=== PATIENT | male | born 1995 | race Caucasian/White ===

== ENCOUNTER 2024-12-08 02:18 | Emergency (ER) | payer SELFPAY ==
[2024-12-08 02:23] VITALS: BP 139/73
[2024-12-08 02:31] VITALS: BMI 26.5
[2024-12-08 03:00] VITALS: BP 125/72
--- NOTE | 2024-12-08 04:34 | ED.GENMED ---
History of Present Illness
General
Chief Complaint: Fall
Source: patient and ambulance crew
Exam Limitations: none
Time Seen by Provider: 12/08/24 04:08
Nursing documentation reviewed up to this point in time: agreed with
History of Present Illness
History of Present Illness:
Patient is a 29-year-old gentleman with history of hypertension admits to drinking alcohol tonight while out with friends. He somehow became from his friends and admits to feeling alone, anxious, became scared and thus called 911. He
states he was 'in survival mode' and apparently attempted to jump over a fence, fell with sustained some superficial abrasions to his dorsal hands. He denies head injury nor loss of consciousness. He arrives via EMS. Police were concerned that
patient may have fallen onto his face. He denies head nor facial injury.
Admits to drinking alcohol tonight but states he rarely drinks alcohol denies drug use.
His only daily medication is an ARB for hypertension.
Unsure as to his last Tdap but believes this was greater than 10 years ago.
Past History
Past History
ED Past Medical History: HTN
ED Past Surgical History: None
Social History
Tobacco: Non-smoker
Alcohol: Occasional
Drug: None
Personal: Single
Living: with family
Employment: Employed
Family History
Family History: Other (Noncontributory)
Phy Exam
Physical Exam
Physical Exam:
TRAUMA EXAM:
VITAL SIGNS: Vital signs reviewed, cooperative
DISTRESS: No active disease
EYES: Pupils reactive, no orbital trauma
NOSE: No deformity or epistaxis
FACE AND SCALP: No scalp or facial trauma, external canals no blood
NECK: Supple nontender
BACK: Back nontender, pelvis stable to compression
RESPIRATORY: No distress, breath sounds normal, no tender chest wall
CARDIAC: No murmur, pulses equal and strong
ABDOMEN: Soft nontender bowel sounds normal
SKIN: Warm and dry, normal color. Good turgor.
EXTREMITIES: Superficial abrasions dorsal distal digits of the right hand as well as 1 superficial abrasion left dorsal hand. No active bleeding. No soft tissue swelling. No palpable tenderness. Full range of motion without difficulty nor pain.
NEUROLOGICAL: Alert, oriented, no motor deficits. Gait is reyes and steady.
PSYCH: Mood affect normal
Course
Orders/Labs/Results
Orders:
Orders
12/08/24 04:33
Tetanus/Diphth/Acelpertussis [Adacel] 0.5 ml IM .ONCE ONE
Vital Signs
Initial and Last Documented VS:
Initial Vital Signs
Temp Pulse Resp BP Pulse Ox
98.7 F 110 22 139/73 96
12/08/24 02:23 12/08/24 02:23 12/08/24 02:23 12/08/24 02:23 12/08/24 02:23
Last Documented Vital Signs
Temp Pulse Resp BP Pulse Ox
98.7 F 105 20 125/72 96
12/08/24 02:23 12/08/24 03:00 12/08/24 03:00 12/08/24 03:00 12/08/24 03:00
MDM/Problems Addressed
Differential Diagnosis Includes:
Patient presents after fall while attempting to jump over a fence has sustained abrasions to dorsal digits.
No evidence of other traumatic findings.
He does admit to alcohol consumption and appears at least mildly intoxicated but remains bright and alert, oriented x 3, gait is reyes and steady. No evidence of significant intoxication.
At this point no indication for radiologic imaging nor laboratory studies.
He is agreeable to Tdap.
MDM/Problems Addressed:
Acute alcohol intoxication
Superficial abrasions bilateral dorsal hands
He remains in phone contact with his friends 1 of which resides within 15 minutes from the hospital.
Will plan for wounds to be cleansed, topical bacitracin. Will update Tdap.
Will discharge to his friend's house. Patient plans to order an Uber.
Chronic conditions affecting care: HTN
*Pulse Oximetry
SaO2: 96
Oxygen Mode of Delivery: Room air
Patient hypoxic: no
*Critical Care Note
Total Time (30-74mins, 75-104mins- exclusive of procedures): Not Applicable
ED Attending Note
-
Portions of this chart may have been created with voice recognition software.� Occasional wrong word or��sound alike� substitutions may have occurred due to the inherent limitations of voice recognition software.
Discharge Plan
Departure
Patient Disposition: Home (Routine Discharge)
Date of Disposition: 12/08/24
Time of Disposition: 04:41
Patient with high blood pressure during this ER visit?: No
Condition: Good
Discharge Problem:
Skin abrasions bilateral hands, Alcohol intoxication
Instructions: Skin Abrasions (DC), Tdap vaccine
Prescriptions:
No Action
No Current Medications
0
Referrals:
NONE,* [Family Provider, Internal Medicine] - As needed
Interventions
Interventions:
*Risk Screen - Suicide Last Done: 12/08/24 02:32
*General Assessment Last Done: 12/08/24 02:32
*Neglect/Abuse Screening Last Done: 12/08/24 02:32
*ED- Fall Risk Assessment Last Done: 12/08/24 02:32
*ED COVID-19 Vaccine History Last Done: 12/08/24 02:32
*ED Influenza Vaccine History Last Done: 12/08/24 02:32
ED-Musculoskeletal Assessment Last Done: 12/08/24 02:43
ED- Neurological Assessment Last Done: 12/08/24 02:35
ED-Skin Assessment Last Done: 12/08/24 03:24
Discharge Date and Time
Print Language: JAPANESE
[2024-12-08] MEDS: ADACEL 0.5 ML IM (04:45)
== END 2024-12-08 04:50 | disposition home or self-care (01) ==
LOC: EMR 02:18
PROVIDERS: EMERGENCY PHYSICIAN Emergency Medicine
DX: S60.512A Abrasion of left hand, initial encounter (principal); S60.511A Abrasion of right hand, initial encounter; F10.129 Alcohol abuse with intoxication, unspecified; I10 Essential (primary) hypertension; Z23 Encounter for immunization; W18.39XA Other fall on same level, initial encounter
CPT/HCPCS: 99283; 90471; 90715